=== PATIENT | female | born 1960 | race Caucasian/White ===

== ENCOUNTER 2017-02-12 07:24 | Inpatient (IN) | payer BC ==
--- NOTE | 2017-02-02 19:33 | HP ---
ADMISSION HISTORY AND PHYSICAL: DATE OF ADMISSION: 02/12/17 PATIENT OF: Dr. Francheska Vanessa. (DICTATED BY ISAI CALDERÓN) CHIEF COMPLAINT: Enlarged thyroid gland. HISTORY OF PRESENT ILLNESS: Ms. Tavarez is a pleasant 56-year-old female who presented to our [facility] office today to discuss her anticipated subtotal thyroidectomy scheduled on 02/12/17. The patient has been known to our practice from prior visit. She was seen by Dr. Vanessa earlier this month for evaluation of thyroid goiter. She reports having an enlarged thyroid for over 10 years that has been initially followed by her primary care physician, Dr. Laura Faye, who eventually referred her to an onsite case manager, Dr. Constantine Diaz. The patient notes that overall her gland has been stable, but recently was noted to have more enlargement specially on the right side. The patient also recalled going to Dr. Arvizu approximately 10 years ago who advised her to undergo thyroidectomy, but the patient elected to wait due to lack of any significant symptoms. She has been followed by Dr. Diaz for the past few years and has been clinically euthyroid. Most recently in the last couple of months, she notes increased swelling of her thyroid gland especially on the right side, but denied any other associated symptoms such as dysphagia. She denies any endocrine symptoms such as heat or cold intolerance, thinning of the hair, or any voice changes. Given her ongoing symptoms, the patient was seen at our office to discuss possible thyroidectomy. She had several ultrasounds, most recently was a month ago that confirmed several nodules, some of them are larger compared to prior studies. There was also noted that some nodules were over 4 cm in diameter. Fine-needle aspiration was recommended; however, the patient elected to go with surgery given the increased size of her thyroid gland. She came and discussed the surgery in details with Dr. Vanessa and the surgery was scheduled on 02/12/17 and the patient presents today to discuss the surgical options and to answer some of her questions regarding the risk of surgery and anticipated time of recovery. PAST MEDICAL HISTORY: Significant for multinodular goiter, type 2 diabetes mellitus, extrinsic asthma without any history of the status asthmaticus. She also has a history of seasonal allergies. PAST SURGICAL HISTORY: Includes a hysterectomy with bilateral salpingo- oophorectomy back in 2003 due to a history of endometriosis and fibroids. She also had a diagnostic laparoscopy with lysis of adhesions in 2001. CURRENT MEDICATIONS: Her current medications at home include: 1. Metformin 500 mg 1 by mouth every day. 2. Flonase Allergy Relief 50 mcg 2 puffs every day. 3. Ventolin 108 mcg 2 puffs 4 times a day as needed for shortness of breath. 4. Flovent 110 mcg 2 puffs once a day. 5. Cetirizine 10 mg 1 tablet daily. ALLERGIES: She has no known drug allergies. FAMILY HISTORY: She denies any family history of the thyroid disease or malignancy. SOCIAL HISTORY: The patient is a nonsmoker who never smoked before. She drinks alcohol very rarely and caffeine intake is minimal. She has a partner and adopted daughter. 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 REVIEW OF SYSTEMS: See HPI, otherwise negative. She denies any headache, dizziness, syncope or blurred vision. No heat or cold intolerance. No dysphagia, sore throat, or difficulty breathing. No cough, wheezing, or shortness of breath. She denies any abdominal pain, nausea, vomiting, or recent changes in the bowel habits. No dysuria, hematuria, flank pain, urinary frequency, or any history of kidney stones. No limb weakness, paresthesia, or heat or cold sensation. PHYSICAL EXAMINATION GENERAL: She is a middle-aged female, obese, appears comfortable and in no acute distress or discomfort at the time of the consultation. VITAL SIGNS: Her vitals today was blood pressure of 118/78, pulse of 88, respiration 16, temperature of 98.4. She weighs 224 pounds on a 5 feet 4 inch frame with BMI of 38.4. HEENT: Sclerae anicteric. PERRLA. EOMs intact. Oropharynx is pink, moist with no exudate. NECK: Supple. Trachea midline. No cervical adenopathy. There is a significant enlargement of the thyroid gland noted more to the right lobe than the left lobe. Both glands are movable with no tenderness noted on palpation. There is multi- nodules noted on examination, appears to be firm and again nontender. Trachea appears to be midline. There is no difficulty or shifting during attempts of swallowing. No JVD was noted. LUNGS: Clear to auscultation bilaterally. HEART: Regular rate and rhythm. Normal S1 and S2 without rubs, murmurs, or gallops. ABDOMEN: Soft, nontender, and nondistended. No hernias, masses, or hepatosplenomegaly. BREAST EXAM: Deferred at this time. BACK: With normal curvature. No CVA tenderness. EXTREMITIES: Without cyanosis, clubbing, or edema. NEUROLOGIC: Grossly intact. RECTAL EXAM: Deferred at this time. ASSESSMENT: A 56-year-old female with progressive enlargement of her thyroid gland documented on physical exam as well as most recent sonogram a month ago with multinodular goiter noted with some nodules approaching size of 4 cm or bigger. PLAN: As mentioned above, the patient is scheduled for bilateral subtotal thyroidectomy to be performed by Dr. Vanessa on 02/12/17. The rationale, indications, risks, and benefits of surgery were discussed with her in great details today. Risks include, but not limited to infection, bleeding, injury to adjacent structure specifically recurrent laryngeal nerve with inherent risk of the voice changes. The patient fully understands the risk inherited, and wishes to proceed as outlined. Again all her questions were answered in great details today. Dr. Vanessa also presented to the room to answer a few of her questions regarding the risks of surgery, the intraoperative course, and the expectation of recovery time. She will go to her preadmission testing today and we will obtain baseline blood work, chest x-ray given her known history of asthma as well as an EKG as well. She was advised to call the office if she has any further question, otherwise we will see her at surgery date and we will follow her up accordingly. ISAI CALDERÓN CC: Dr. Laura Faye; Dr. Constantine Diaz * [id number]/[facility] #: [id number] [facility]OSPITALJustin
[~2017-02-12 07:24] MED LIST: Buffered Lidocaine 1% SYR 3ML* 3 ML/SYR SYRINGE INTRADERM ONE; Famotidine IV* 10 MG/ML 2 ML (20 mg) IV ONE; Famotidine IV* 10 MG/ML 2 ML (20 mg) ONE; Levalbuterol 0.63MG/3ML NEB INH ONE; Levalbuterol 1.25MG/0.5ML NEB ONE; Metoclopramide TAB* 10 MG ONE; Metoclopramide TAB* 10 MG PO ONE; Scopolamine 1.5 mg* PATCH ONE; Scopolamine 1.5 mg* PATCH TRANSDERM ONE; ceFAZolin 2 GM PREMIX(*) 2 GM/50 ML BAG IVPB ONE
[2017-02-12] MEDS ORDERED: Bupivacaine 0.25% EPI 200,000* 30 ML SDV ONE (08:04)
[2017-02-12] MEDS ORDERED: KETAMINE HCL* 50 MG/ML 10 ML VIAL ONE (08:25)
[2017-02-12] MEDS ORDERED: Cisatracurium* 2 MG/ML MDV 5 ML ONE (08:25)
[2017-02-12] MEDS ORDERED: Propofol* 10 MG/ML 20 ML BTL IV PUSH ONE (08:25)
[2017-02-12] MEDS ORDERED: fentaNYL* 50 MCG/ML 2 ML VIAL (100 MCG VIAL) ONE ×2 (08:25→11:22)
[2017-02-12] MEDS ORDERED: Ondansetron INJ* 2 MG/ML VIAL ONE (08:25)
[2017-02-12] MEDS ORDERED: Dexamethasone IV* 4 MG/ML 1 ML (4 MG) ONE (08:25)
[2017-02-12] MEDS ORDERED: Lidocaine 2% PF * 5 ML VIAL ONE (08:25)
[2017-02-12] MEDS ORDERED: Artificial Tear OPHTH.OINT* 3.5 GM ONE (08:26)
[2017-02-12] MEDS ORDERED: Midazolam* 1 MG/ML 5 ML VIAL (5 MG) ONE (08:26)
[2017-02-12] MEDS ORDERED: oxyCODONE/Acetamin 5/325 MG* TAB PO PRN (09:51)
[2017-02-12] MEDS ORDERED: fentaNYL* 50 MCG/ML 2 ML VIAL (100 MCG VIAL) IV PRN (09:51)
[2017-02-12] MEDS ORDERED: Ondansetron INJ* 2 MG/ML VIAL IV PRN ×2 (09:51→12:11)
[2017-02-12] MEDS ORDERED: HYDROmorphone* 1 MG/ML 1 ML SYR IV PRN (09:51)
[2017-02-12] MEDS ORDERED: DiMENhydriNATE IV* 50 MG/ML VIAL IV PUSH PRN (09:51)
--- NOTE | 2017-02-12 12:02 | PN ---
Progress Note - Progress Note Note: Brief Operative Note: Preop Dx: Multinodular goiter Postop Dx: same Procedure: Subtotal thyroidectomy Anesthesia: GET Surgeon: Otf Asst: ISAI Mallory EBL: <100 ml Fluids:1350 ml RL Drains: none Findings: dictated
[2017-02-12] MEDS ORDERED: Acetaminophen TAB* 325 MG PO PRN (12:08)
[2017-02-12] MEDS ORDERED: Albuterol HFA INHALER* 8 gm MDI INH PRN (12:08)
[2017-02-12 12:45] LABS: Calcium 9.2 mg/dL (8.6-10.3)
[2017-02-12] MEDS ORDERED: Calcium Carbonate CHEW TAB* 500 MG (TUMS) ONE (14:14)
[2017-02-12] MEDS: Calcium Carbonate CHEW TAB* 500 MG (TUMS) PO SCH ×2 (14:16→21:05)
[2017-02-12] MEDS: HYDROcodone/ACET. 7.5/325 LIQ* 15 ML UDC PO PRN ×2 (14:24→21:05)
[2017-02-12] MEDS ORDERED: GLUCOPHAGE PO SCH (18:00)
[2017-02-12] MEDS ORDERED: METFORMIN 500 MG PO SCH ×2 (18:33→20:00)
[2017-02-12] MEDS ORDERED: PTO: Metformin ER (NF) 500 MG TAB PO SCH (20:00)
[2017-02-12] MEDS ORDERED: Cetirizine* 10 MG TAB PO SCH (21:00)
--- NOTE | 2017-02-12 23:28 | OP ---
CC: [facility]; Dr. Constantine Diaz; Dr. Laura Faye OPERATIVE SUMMARY: DATE OF OPERATION: 02/12/17 DATE OF : 60 SURGEON: Francheska Vanessa MD CURRICULUM WRITER: ISAI Chavez PRE-OP DIAGNOSIS: Diffuse nodular goiter. POST-OP DIAGNOSIS: Diffuse nodular goiter. OPERATIVE PROCEDURE: Subtotal bilateral thyroidectomy. INDICATIONS: Ms. Tavarez is a 56-year-old female, who presented to the office with history of nod ular goiter that has recently enlarged and is causing symptoms prompting the plan for surgical inter vention. DESCRIPTION OF PROCEDURE: On the morning of the surgery, she was brought to the operating room, liam prashanth on the OR table in a supine position, and given general anesthesia. The neck was prepped and dr vijayed in the usual sterile fashion. After infiltrating with local anesthetic, an incision was made a long the line that had been marked preoperatively. Subcutaneous tissue was divided with electrocaut elizabeth through the platysma muscle and then flaps were developed superiorly to the thyroid nodule and i nferiorly to the sternal notch. The strap muscles were then divided along the midline, which was no akua to be displaced due to very large right thyroid lobe. The strap muscles were then retracted ove r the right side of the gland and attention was turned first to the superior pole here in its medial aspect, vessels were identified approaching the gland and divided between ligature and clip. This was made difficult by the size of the gland and once a substantial proportion of the vessels were ta festus down from the superior pole, attention was turned to the inferior pole, where LigaSure was used to control vessels that approached the gland. Again, this was made difficult by the size of the gla nd. Attention was turned again onto more to the superior pole and further dissection was facilitate d by the slightly increased mobility of the inferior pole and again, attention was turned to the inf erior pole, where ultimately the mobility was increased enough to allow the complete dissection of t he inferior pole. The gland was then delivered with difficulty again due to the size of the gland a nd attention was turned to the middle portion of the gland. Here searching for the recurrent laryng eal nerve was made and it was positively identified along with a candidate for inferior pole parathy roid that was preserved during the procedure and then dissection was completed of the remaining vess els using a combination of LigaSure and clip and then placing the gland remote from the nerve was se lected for division of the gland with electrocautery. The remnant was left in situ and the remainin g portion of the gland was elevated out of the neck and off the trachea using electrocautery. Once this was done, attention was turned to the left side. Here again, the first dissection was begun in the superior pole, where individual vessels that approached the gland were divided between ligature and clip and then attention was turned to the inferior pole, where the vessels were divided with Li gaSure. This again took some repeat dissection in the superior pole to completely free it up. Once this was done, the gland was able to be delivered into the wound and dissection in the middle porti on of the gland was accomplished. Here, two candidates for inferior and superior pole parathyroids were identified and preserved. The recurrent laryngeal nerve was identified and then a place in the gland was identified for division and electrocautery was used to divide the gland leaving the small remnant in situ. The gland was elevated off the neck using electrocautery. Its last detachments w ere clamped and ligated and the gland was handed off as a specimen. Hemostasis was assured with a co mbination of clip, control of vessels, and Surgicel on both sides and once this appeared adequate, c losure was accomplished. 3-0 Polysorb was used to reapproximate the strap muscles, 4-0 Polysorb was used to reapproximate the platysma muscle, and the skin was closed with 4-0 Surgipro in a subcuticu lar fashion. Prior to completing the closure, additional local was instilled into the wound. Steri -Strips and a dry sterile dressing were applied. All sponge and instrument counts were correct. The patient tolerated the procedure well and was transferred to Recovery in a stable condition. [id number]/[facility] #: [id number]
[2017-02-13] MEDS: HYDROcodone/ACET. 7.5/325 LIQ* 15 ML UDC PO PRN ×2 (04:35→13:26)
[2017-02-13] MEDS ORDERED: Levothyroxine TAB* 75 MCG TAB PO SCH (06:00)
--- NOTE | 2017-02-13 07:32 | PN ---
Progress Note - Progress Note Note: Surgery Ms. Tavarez reports she feels fine, she does have some pain at the incision. Vital Signs 02/12/17 02/12/17 02/12/17 07:40 12:03 12:05 Temperature 96.8 F 97.9 F Pulse Rate 72 92 92 Respiratory 16 18 18 Rate Blood Pressure 127/69 128/78 127/72 (mmHg) O2 Sat by Pulse 95 91 98 Oximetry 02/12/17 02/12/17 02/12/17 12:10 12:15 12:30 Temperature Pulse Rate 90 90 91 Respiratory 18 18 18 Rate Blood Pressure 136/95 143/87 123/89 (mmHg) O2 Sat by Pulse 97 99 99 Oximetry 02/12/17 02/12/17 02/12/17 12:44 13:00 13:15 Temperature 98.6 F Pulse Rate 89 99 91 Respiratory 18 20 20 Rate Blood Pressure 136/82 145/83 140/74 (mmHg) O2 Sat by Pulse 97 98 97 Oximetry 02/12/17 02/12/17 02/12/17 13:45 13:55 14:24 Temperature 97.6 F Pulse Rate 94 Respiratory 14 16 14 Rate Blood Pressure 149/78 (mmHg) O2 Sat by Pulse 93 Oximetry 02/12/17 02/12/17 02/12/17 15:05 15:08 15:47 Temperature 98.1 F 97.9 F Pulse Rate 97 95 Respiratory 16 16 Rate Blood Pressure 141/75 159/83 (mmHg) O2 Sat by Pulse 97 96 Oximetry 02/12/17 02/12/17 02/12/17 16:00 16:24 17:55 Temperature Pulse Rate 102 Respiratory 16 16 Rate Blood Pressure 132/77 (mmHg) O2 Sat by Pulse 96 96 Oximetry 02/12/17 02/12/17 02/12/17 19:48 20:00 21:05 Temperature 98.3 F Pulse Rate 108 Respiratory 16 17 17 Rate Blood Pressure 139/64 (mmHg) O2 Sat by Pulse 95 Oximetry 02/12/17 02/12/17 02/13/17 23:05 23:12 03:39 Temperature 98.7 F 98.4 F Pulse Rate 97 86 Respiratory 16 16 16 Rate Blood Pressure 124/76 121/67 (mmHg) O2 Sat by Pulse 97 98 Oximetry 02/13/17 04:35 Temperature Pulse Rate Respiratory 17 Rate Blood Pressure (mmHg) O2 Sat by Pulse Oximetry incision is clean and dry, no signs infection neg. [place] sign. Intake & Output 02/12/17 02/13/17 02/13/17 22:59 06:59 14:59 Intake Total 3590 1744 Output Total 2200 1850 Balance 1390 -106 Intake: IV Fluids 990 944 LR 990 944 Oral 2600 800 Output: Urine 2200 1850 Laboratory Results - last 24 hr 02/12/17 02/12/17 02/12/17 07:43 12:24 17:50 Glucose 157 H POC Glucose (mg/dL) 114 H Calcium 9.2 8.8 02/12/17 02/12/17 02/13/17 18:01 21:13 00:34 Glucose POC Glucose (mg/dL) 153 H 115 H Calcium 9.5 02/13/17 05:28 Glucose POC Glucose (mg/dL) Calcium 8.8 A/P: POD#1 s/p subtotal thyroidectomy, doing well. Can go home if next Ca++ is WNL. CLFoster
[2017-02-13] MEDS: Calcium Carbonate CHEW TAB* 500 MG (TUMS) PO SCH ×2 (08:55→13:27)
[2017-02-13] MEDS ORDERED: Fluticasone NASAL SPRAY 50MCG* 16 gm SPRAY BTL BOTH NARES SCH (09:00)
[2017-02-13 11:48] VITALS: BP 116/64
[2017-02-15] MEDS ORDERED: Scopolomine PATCH Remove* 1 NOTE MISC PATCH OFF ONE (07:00)
== END 2017-02-13 13:50 | disposition home or self-care (01) | DRG 404 ==
LOC: AA 07:24 → SSU 12:03
PROVIDERS: ADMIT Surgery; ATTEND Surgery
PROC: 0GBH0ZZ Excision of Right Thyroid Gland Lobe, Open Approach (ICD-10-PCS; 2017-02-12)
PROC: 0GBG0ZZ Excision of Left Thyroid Gland Lobe, Open Approach (ICD-10-PCS; principal; 2017-02-12 08:45)
DX: E04.2 Nontoxic multinodular goiter (principal); F32.9 Major depressive disorder, single episode, unspecified; E11.9 Type 2 diabetes mellitus without complications; J45.909 Unspecified asthma, uncomplicated; E78.5 Hyperlipidemia, unspecified; E66.9 Obesity, unspecified; Z90.710 Acquired absence of both cervix and uterus; Z90.722 Acquired absence of ovaries, bilateral; Z68.37 Body mass index [BMI] 37.0-37.9, adult; Z79.84 Long term (current) use of oral hypoglycemic drugs
CPT/HCPCS: 36415; 82310; 82947; 88307; A9270-GY; G0378; J0690; J1100; J2250; J2405; J2704; J3010

== ENCOUNTER 2017-10-25 10:02 | Emergency (ER) | payer BC ==
[2017-10-25 11:10] LABS: ABS Basophils 0 10^3/ul (0-0.2); ABS Eosinophils 0.2 10^3/ul (0-0.6); ABS Lymphocytes 1.9 10^3/ul (1.0-4.8); ABS Monocytes 0.5 10^3/ul (0-0.8); ABS Neutrophils 4.7 10^3/ul (1.5-7.7); ABS Nucleated RBC 0 10^3/ul; Eosinophil % 3.3 % (0-6); Hematocrit 41 % (35-47); Hemoglobin 13.6 g/dl (12.0-16.0); Lymphocyte % 25.4 % (25-47); Mean Corpuscular HGB Conc 33 g/dl (31-36); Mean Corpuscular Hemoglobin 29 pg (27-31); Mean Corpuscular Volume 88 fL (80-97); Mean Platelet Volume 8 um3 (7.4-10.4); Nucleated Red Blood Cells % 0.1; Platelet Count 251 10^3/ul (150-450); Red Blood Count 4.65 10^6/ul (4.0-5.4); Red Cell Distribution Width 14 % (10.5-15); White Blood Count 7.3 10^3/ul (3.5-10.8)
[2017-10-25 11:29] LABS: INR 0.81 (0.77-1.02)
[2017-10-25 11:30] LABS: EGFR Non-African American 111.6 (>60)
--- NOTE | 2017-10-25 11:45 | RAD ---
INDICATION: Chest pain. COMPARISON: Comparison is made with a prior study from February 02, 2017. TECHNIQUE: Dual-energy PA and lateral views of the chest were obtained. FINDINGS: The heart is within normal limits in size. Mediastinal and hilar contours appear within normal limits. The lungs are clear. No pleural effusion is present. IMPRESSION: NO EVIDENCE FOR ACTIVE CARDIOPULMONARY DISEASE.
--- OUTSIDE RECORDS SUMMARY | 2017-10-25 11:53 | XMS REPORT ---
:1960 External Reference #:[id number] Author Organization [facility] Address [address] [address] Phone [phone] Care Team Providers Name Role Phone Laura Faye MD Primary Care Physician Unavailable Payers Type Date Identification Numbers Payment Provider Subscriber Commercial Effective: Policy Number: KENNY Billings Ana Ellington [place] 2011 [id number] Expires: 2017 PayID: [id number] [place] [address] Medigap Part B Effective: Policy Number: KENNY Awa Ellington 2017 [id number] [place] PayID: [id number] [address] [place] [address] Medigap Part B Effective: Policy Number: BS Ran DUSTIN Ellington 2010 [id number] [place] Expires: 2011 Group Number: [id number] [address] [address] PayID: [id number] [place] [address] Workers Compensation Onset: 2015 Policy Number: Duke Ellington [id number] [place] Group Number: [id number] [address] PayID: [id number] [place] [address] Problems Date Description Provider Status Onset: 12/23/2010 Extrinsic asthma without status Laura Faye M.D. Active asthmaticus Onset: 01/30/2015 Diabetes mellitus Laura Faye M.D. Active Onset: 03/10/2017 Postoperative hypothyroidism Laura Faye M.D. Active Onset: 01/15/2016 Multinodular goiter Laura Faye M.D. 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 Cigarette Use Never Smoked Cigarettes ETOH Use Rarely consumes alcohol once every 3 months or so Smoking Patient has never smoked Recreational Drug Use Denies Drug Use General Hx Text Health Care Proxy: Lorena Flores Sexual Hx text SSP Allergies, Adverse Reactions, Alerts Date Description Reaction Status Severity Comments 07/03/2010 No Known Drug Allergy active Medications Medication Date Status Form Strength Qnty SIG Indications Ordering Provider Levothyroxine 10/19 Active Tablets 112mcg 90tab 1 by mouth s every day Linda Faye.DBinta Nystop 08/19 Active Powder [id number] 120un apply twice t/GM its daily to Cotton, affected M.D. areas Metformin HCL 01/27 Active Tablets ER 500mg 90tab 1 by mouth E11.9 Laura ER /2015 24HR s every day Yunier M.D. Flonase Allergy 05/30 Active Suspension 50mcg/Act 16uni use 2 puffs ts every day Cotton, M.D. Ventolin HFA 05/18 Active Aerosol 108(90Bas 18uni use 2 puffs e) ts 4 times a Cotton, mcg/Act day as M.D. needed Flovent HFA 12/23 Active Aerosol 110mcg/Ac 36gm inhale 2 J45.40 t puffs once Cotton, a day M.D. Cetirizine HCL 07/04 Active Tablets 10mg 1 tablet by mouth daily Yunier, YeimyDBinta Vivotif 04/[address] luna take one Z71.9 pill every Cotton, - other day M.D. 10/18 until Atovaquone-Prog 04/13 Hx Tablets 250-100mg 25tab Start 2 Z71.9 Laura uanil HCL s days prior Cotton, - to travel, M.D. 06/04 once daily through 1 week after return Azithromycin 04/13 Hx Tablets 500mg 10tab 1 by mouth Z71.9 s once day x Cotton, - 3 days prn M.D. 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 02/23 for 10 Nystop 01/27 Hx Powder [id number] 120gm apply twice R21 t/GM daily to Yunier, - affected M.D. 06/22 Metformin HCL 10/09 Hx Tablets 500mg 30tab Take 10/05 E11.9 s tablet once Cotton, - daily in M.D. 01/27 the evening for 2 weeks. If tolerated, increase to whole tablet once daily Augmentin 10/25 Hx Tablets 875-125mg 20tab 1 tablet by 461.8 Thanh s mouth q12 Sloane, BASEBALL SEWER HAND - hours for 11/03 10 Benzonatate 10/25 Hx Capsules 100mg 30cap take one or 461.8 Thanh s two Sloane, BASEBALL SEWER HAND - capsules 11/02 every hours as needed for cough. Azithromycin 07/11 Hx Tablets 250mg 6tabs 2 tabs by 466.0 Thanh mouth every Sloane, BASEBALL SEWER HAND - day x1 day, 10/01 1 tab by mouth every day x 4 days Flonase 05/24 Hx Suspension 50mcg/Act 16uni Use 2 Puffs ts Every Day Yunier, - M.D. 05/30 Zithromax Z-Nilton 11/19 Hx Tablets 250mg 6tabs two po initially Endo, M.DBinta - then one po 12/01 Atrovent 09/09 Hx Solution 0.06% 1ml 2 sprays in 465.9 Alexa each Juwan, - nostril 4 N.P. 05/18 times Robitussin 09/09 Hx Syrup 100mg/5ML 118ml 10 ml po 465.9 Alexa Chest q4h prn Juwan, Congestion - N.P. 09/09 Zyrtec-D 09/09 Hx Tablets ER 5-120mg 60tab 1 tab bid 465.9 Alexa Allergy/Congest 12HR s daily Juwan, ion - N.P. 05/18 Cheratussin ac 09/09 Hx Syrup 100-10mg/ 236ml 5-10 ml po Alexa 5ML q4-6h prn Juwan, - N.P. 03/22 Fluticasone 01/14 Hx Suspension 50mcg/Act 16gm 2 Laura intranasal Cotton, - puffs once M.D. 05/24 Flovent HFA 11/13 Hx Aerosol 220mcg/Ac 3unit 2 puffs 493.00 t s twice daily Cotton, - M.D. 12/23 Ventolin HFA 11/13 Hx Aerosol 108(90Bas 18uni Use 2 Puffs 493.00 e) mcg/ac ts 4 Times A Cotton, - Day as M.D. 05/18 Augmentin 11/05 Hx Tablets 875-125mg 20tab one by s mouth every Cotton, - 12 hours M.D. 11/15 for days Medrol Dosepak 11/05 Hx Tablets 4mg 1tabs as directed Cotton, - M.D. 11/11 Medrol Dosepak 10/27 Hx Tablets 4mg 1tabs as directed Cotton, - M.D. 11/02 Zithromax Z-Nilton 10/22 Hx Tablets 250mg 1Pack two po initially Cotton, - then one po M.D. 11/01 Rhinocort Aqua Hx Suspension 32mcg/Act 1unit 1 spray in Laura /0000 s each Cotton, - nostril M.D. 01/14 once daily /2011 Albuterol 00/00 Hx 1unit 2 puffs 4 493.00 Laura Inhaler /0000 s times a day Cotton, - as needed M.D. 11/13 Flovent HFA 00/ Hx Aero 110mcg/Ac 12uni Take 3 493.00 Laura /0000 t ts Puffs Twice Cotton, - A Day M.D. 11/13 Mucinex 00 Hx Liquid 10-20-400 1 qd Unknown Fast-Max Severe /0000 mg/20ML Congestion - & Cough 03/22 Decongestant Hx Tablets 30mg 2 every 6 Unknown /0000 hours - 09/09 Synthroid Hx Tablets 75mcg 1 by mouth Unknown /0000 every day - 03/10 Calcium Hx Tablets 600mg 1 by mouth Unknown Carbonate /0000 three times - a day 04/13 Levothyroxine Hx Tablets 150mcg 1 by mouth Constantine Diaz Sodium /0000 every day MD - 10/18 Clotrimazole Hx Cream 1% apply twice Unknown /0000 daily - 10/18 Immunizations CPT Code Status Date Vaccine Reaction Lot # [id number] Given 07/05/2017 Influenza Virus Vaccine, Quadrivalent, Split, Preservative Free 31353 Given 10/13/2016 Tetanus And Diptheria (Td) no immediate reaction [id number] For Adult Use Preservative noted .. hh Free [id number] Given 10/13/2016 Influenza Virus Vaccine, no immediate reaction [id number] Quadrivalent, Split Virus, noted,,, hh Im Use [id number] Given 07/05/2015 Fluvirin Im 3Yrs And Older [id number] Given 07/16/2014 Influenza Virus Vaccine, Quadrivalent, Split, Preservative Free 14619 Given 07/16/2014 Influenza Virus Vaccine, [id number] Quadrivalent, Split, Preservative Free Q2037 Given 06/30/2013 Fluvirin Im 3Yrs And Older Q2037 Given 09/19/2012 Fluvirin Im 3Yrs And Older [id number] 63466 Given 07/04/2010 Influenza Virus 3Yrs & Over 48619 Given 06/13/2009 Pneumonia Vaccine 72036 Given 06/13/2009 Influenza Virus 3Yrs & Over 18728 Given 07/19/2008 Influenza Virus 3Yrs & Over 58553 Given 03/15/2007 Tdap - Tetanus/Diptheria/Acellular Pertussis Vital Signs Date Vital Result Comment 10/19/2017 Height 64.50 inches 5'4.50" Weight 229.00 lb Heart Rate 87 /min BP Systolic 120 mmHg BP Diastolic 72 mmHg Body Temperature 98.8 F O2 % BldC Oximetry 96 % BMI (Body Mass Index) 38.7 kg/m2 04/13/2017 Weight 221.00 lb Heart Rate 74 /min BP Systolic Sitting 114 mmHg BP Diastolic Sitting 74 mmHg O2 % BldC Oximetry 97 % 03/29/2017 Weight 226.00 lb with shoes Heart Rate 70 /min BP Systolic 126 mmHg BP Diastolic 80 mmHg O2 % BldC Oximetry 97 % 02/22/2017 Heart Rate 72 /min BP Systolic 120 mmHg BP Diastolic 82 mmHg Respiratory Rate 18 /min Body Temperature 96.9 F 02/09/2017 Weight 225.75 lb Heart Rate 76 /min BP Systolic 122 mmHg BP Diastolic 78 mmHg Body Temperature 98.3 F O2 % BldC Oximetry 98 % 02/02/2017 Height 64 inches 5'4" Weight 224.00 lb Heart Rate 88 /min BP Systolic Sitting 118 mmHg BP Diastolic Sitting 78 mmHg Respiratory Rate 16 /min Body Temperature 98.4 F BMI (Body Mass Index) 38.4 kg/m2 01/12/2017 Height 64 inches 5'4" Weight 224.00 lb Heart Rate 72 /min BP Systolic 122 mmHg BP Diastolic 78 mmHg Respiratory Rate 16 /min Body Temperature 97.6 F BMI (Body Mass Index) 38.4 kg/m2 10/13/2016 Height 64 inches 5'4" Weight 220.00 lb Heart Rate 76 /min BP Systolic Sitting 124 mmHg BP Diastolic Sitting 80 mmHg Respiratory Rate 15 /min Body Temperature 98.1 F O2 % BldC Oximetry 98 % BMI (Body Mass Index) 37.8 kg/m2 06/22/2016 Height 65 inches 5'5" Weight 234.00 lb Heart Rate 89 /min BP Systolic 124 mmHg BP Diastolic 78 mmHg Body Temperature 98.4 F O2 % BldC Oximetry 97 % BMI (Body Mass Index) 38.9 kg/m2 05/05/2016 Weight 232.00 lb Heart Rate 71 /min BP Systolic Sitting 113 mmHg BP Diastolic Sitting 74 mmHg O2 % BldC Oximetry 98 % 02/13/2016 Weight 237.00 lb Heart Rate 90 /min BP Systolic Sitting 126 mmHg BP Diastolic Sitting 82 mmHg Respiratory Rate 14 /min Body Temperature 98.2 F O2 % BldC Oximetry 97 % 01/28/2016 Weight 237.00 lb Heart Rate 85 /min BP Systolic 116 mmHg BP Diastolic 70 mmHg Body Temperature 98.6 F O2 % BldC Oximetry 96 % 10/09/2015 Height 65 inches 5'5" Weight 241.00 lb Heart Rate 84 /min BP Systolic Sitting 124 mmHg BP Diastolic Sitting 76 mmHg Body Temperature 98.3 F O2 % BldC Oximetry 97 % BMI (Body Mass Index) 40.1 kg/m2 09/17/2015 Height 65 inches 5'5" Weight 241.00 lb Heart Rate 86 /min BP Systolic Sitting 122 mmHg BP Diastolic Sitting 78 mmHg Respiratory Rate 15 /min Body Temperature 97.6 F O2 % BldC Oximetry 98 % BMI (Body Mass Index) 40.1 kg/m2 05/30/2015 Weight 236.00 lb Heart Rate 94 /min BP Systolic Sitting 133 mmHg BP Diastolic Sitting 81 mmHg Body Temperature 98.4 F 03/01/2015 Height 65 inches 5'5" Weight 233.00 lb Heart Rate 80 /min BP Systolic 112 mmHg BP Diastolic 72 mmHg Body Temperature 98.4 F BMI (Body Mass Index) 38.8 kg/m2 11/27/2014 Weight 235.00 lb Heart Rate 70 /min BP Systolic Sitting 124 mmHg BP Diastolic Sitting 84 mmHg Body Temperature 98.1 F O2 % BldC Oximetry 97 % 10/25/2014 Height 65 inches 5'5" Weight 231.00 lb Heart Rate 99 /min BP Systolic 106 mmHg BP Diastolic 72 mmHg Body Temperature 98.4 F O2 % BldC Oximetry 99 % BMI (Body Mass Index) 38.4 kg/m2 10/02/2014 Height 65 inches 5'5" Weight 230.50 lb Heart Rate 79 /min BP Systolic Sitting 102 mmHg BP Diastolic Sitting 58 mmHg Body Temperature 97.9 F O2 % BldC Oximetry 97 % BMI (Body Mass Index) 38.4 kg/m2 07/11/2014 Height 65 inches 5'5" Weight 223.00 lb shoes on Heart Rate 85 /min BP Systolic Sitting 118 mmHg BP Diastolic Sitting 68 mmHg Body Temperature 98.8 F O2 % BldC Oximetry 98 % BMI (Body Mass Index) 37.1 kg/m2 05/21/2014 Height 65 inches 5'5" Weight 220.00 lb Heart Rate 68 /min BP Systolic Sitting 102 mmHg BP Diastolic Sitting 76 mmHg BMI (Body Mass Index) 36.6 kg/m2 12/04/2013 Height 65 inches 5'5" Weight 231.00 lb Heart Rate 80 /min BP Systolic Sitting 152 mmHg BP Diastolic Sitting 90 mmHg Body Temperature 99.5 F BMI (Body Mass Index) 38.4 kg/m2 12/01/2013 Weight 231.00 lb Heart Rate 76 /min BP Systolic 126 mmHg BP Diastolic 78 mmHg Respiratory Rate 16 /min Body Temperature 98.7 F 05/18/2013 Height 65 inches 5'5" Weight 223.50 lb Heart Rate 88 /min BP Systolic Sitting 106 mmHg BP Diastolic Sitting 70 mmHg BMI (Body Mass Index) 37.2 kg/m2 03/22/2013 Weight 227.00 lb Heart Rate 80 /min BP Systolic Sitting 110 mmHg BP Diastolic Sitting 80 mmHg Body Temperature 98.4 F 09/09/2012 Height 65.5 inches 5'5.50" Weight 228.00 lb Heart Rate 112 /min BP Systolic Sitting 126 mmHg BP Diastolic Sitting 80 mmHg Body Temperature 98.5 F BMI (Body Mass Index) 37.4 kg/m2 02/12/2012 Height 65 inches 5'5" Weight 214.00 lb Heart Rate 72 /min BP Systolic Sitting 122 mmHg L BP Diastolic Sitting 70 mmHg L BMI (Body Mass Index) 35.6 kg/m2 08/21/2011 Height 64.5 inches 5'4.50" Weight 201.00 lb Heart Rate 74 /min BP Systolic Sitting 128 mmHg BP Diastolic Sitting 76 mmHg BMI (Body Mass Index) 34.0 kg/m2 04/15/2011 Height 64.5 inches 5'4.50" Weight 217.00 lb Heart Rate 66 /min BP Systolic Sitting 118 mmHg BP Diastolic Sitting 82 mmHg BMI (Body Mass Index) 36.7 kg/m2 01/27/2011 Height 64.5 inches 5'4.50" Weight 224.50 lb Heart Rate 88 /min BP Systolic 118 mmHg BP Diastolic 72 mmHg BMI (Body Mass Index) 37.9 kg/m2 12/23/2010 Weight 223.00 lb Heart Rate 78 /min BP Systolic 122 mmHg BP Diastolic 78 mmHg O2 % BldC Oximetry 96 % 11/13/2010 Weight 224.00 lb Heart Rate 98 /min BP Systolic 110 mmHg LG Cuff BP Diastolic 70 mmHg LG Cuff Body Temperature 98.3 F O2 % BldC Oximetry 97 % 11/05/2010 Weight 224.00 lb Heart Rate 64 /min BP Systolic 124 mmHg BP Diastolic 70 mmHg Body Temperature 98.5 F 10/22/2010 Weight 225.00 lb Heart Rate 80 /min BP Systolic 122 mmHg BP Diastolic 80 mmHg Body Temperature 98.4 F 07/04/2010 Weight 212.50 lb Heart Rate 76 /min BP Systolic 118 mmHg BP Diastolic 84 mmHg O2 % BldC Oximetry 97 % Results Test Date Test Result H/L Range Note Comp Metabolic Panel 10/08/2017 Sodium 137 mmol/L 133-145 Potassium 4.3 mmol/L 3.5-5.0 Chloride 103 mmol/L 101-111 Co2 Carbon Dioxide 26 mmol/L 22-32 Anion Gap 8 mmol/L 2-11 Glucose 121 mg/dL High 70-100 Blood Urea Nitrogen 15 mg/dL 6-24 Creatinine 0.63 mg/dL 0.51-0.95 BUN/Creatinine Ratio 23.8 High 8-20 Calcium 9.6 mg/dL 8.6-10.3 Total Protein 6.8 g/dL 6.4-8.9 Albumin 4.5 g/dL 3.2-5.2 Globulin 2.3 g/dL 2-4 Albumin/Globulin Ratio 2.0 1-3 Total Bilirubin 0.60 mg/dL 0.2-1.0 Alkaline Phosphatase 83 U/L 34-104 Alt 25 U/L 7-52 Ast 19 U/L 13-39 Egfr Non- 97.4 >60 Egfr 125.3 >60 1 Laboratory test finding 10/08/2017 Hemoglobin A1c (Glyco 6.2 % High 4.0- 5.6 2 HGB) Urine Microalbumin 10/08/2017 Ur Microalbumin (mg/L) < 15.0 Random mg/L Urine Creatinine 133.63 mg/dL Urine Microalbumin/Creatinine TNP ug/mg <31 3 Lipid Profile (Trig/Chol/HDL) 04/02/2017 Triglycerides 178 mg/dL 4 Cholesterol 187 mg/dL 5 HDL Cholesterol 43.1 mg/dL 6 LDL Cholesterol 108 mg/dL 7 Laboratory test 04/02/2017 Hemoglobin A1c 6.0 % High Less than 6.0 8 finding (Glyco HGB) CBC No Diff 02/02/2017 White Blood Count 8.9 10^3/uL 3.5-10.8 9 Red Blood Count 4.82 10^6/uL 4.0-5.4 9 Hemoglobin 13.8 g/dL 12.0-16.0 9 Hematocrit 42 % 35-47 9 Mean Corpuscular Volume 87 fL 80-97 9 Mean Corpuscular Hemoglobin 29 pg 27-31 9 Mean Corpuscular HGB Conc 33 g/dL 31-36 9 Red Cell Distribution Width 14 % 10.5-15 9 Platelet Count 252 10^3/uL 150-450 9 Mean Platelet Volume 8 um3 7.4-10.4 9 Basic Metabolic Panel 02/02/2017 Sodium 136 mmol/L 133-145 9 Potassium 3.9 mmol/L 3.5-5.0 9 Chloride 101 mmol/L 101-111 9 Co2 Carbon Dioxide 26 mmol/L 22-32 9 Anion Gap 9 mmol/L 2-11 9 Glucose 87 mg/dL 70-100 9 Blood Urea Nitrogen 15 mg/dL 6-24 9 Creatinine 0.58 mg/dL 0.51-0.95 9 BUN/Creatinine Ratio 25.9 High 8-20 9 Calcium 9.8 mg/dL 8.6-10.3 9 Egfr Non- 107.5 >60 9 Egfr 138.3 >60 9, 10 Lipid Profile (Trig/Chol/HDL) 10/02/2016 Triglycerides 257 mg/dL 11, 12 Cholesterol 205 mg/dL 11, 13 HDL Cholesterol 41.6 mg/dL 11, 14 LDL Cholesterol 112 mg/dL 11, 15 Comp Metabolic Panel 10/02/2016 Sodium 136 mmol/L 133-145 11 Potassium 4.2 mmol/L 3.5-5.0 11 Chloride 102 mmol/L 101-111 11 Co2 Carbon Dioxide 28 mmol/L 22-32 11 Anion Gap 6 mmol/L 2-11 11 Glucose 110 mg/dL High 70-100 11 Blood Urea Nitrogen 14 mg/dL 6-24 11 Creatinine 0.62 mg/dL 0.51-0.95 11 BUN/Creatinine Ratio 22.6 High 8-20 11 Calcium 9.4 mg/dL 8.6-10.3 11 Total Protein 6.7 g/dL 6.4-8.9 11 Albumin 4.4 g/dL 3.2-5.2 11 Globulin 2.3 g/dL 2-4 11 Albumin/Globulin Ratio 1.9 1-3 11 Total Bilirubin 0.80 mg/dL 0.2-1.0 11 Alkaline Phosphatase 84 U/L 34-104 11 Alt 20 U/L 7-52 11 Ast 14 U/L 13-39 11 Egfr Non- 99.6 >60 11 Egfr 128.1 >60 11, 16 Laboratory test 10/02/2016 Hemoglobin A1c 5.9 % Less than 6.0 11, 17 finding (Glyco HGB) Urine Microalbumin 10/02/2016 Urine Creatinine 75.10 mg/dL 11 Random Ur Microalbumin (mg/L) < 15.0 mg/L 11 Urine Microalbumin/Creatinine TNP ug/mg <31 11, 18 Laboratory test 10/02/2016 TSH (Thyroid Stim 1.07 mcIU/mL 0.34-5.60 11, 19 finding Horm) Laboratory test 01/28/2016 Hemoglobin A1c 6.2 5-7 finding Laboratory test 09/14/2015 Hemoglobin A1c 6.8 % High Less than 6.0 20 finding (Glyco HGB) TSH (Thyroid Stim Horm) 0.99 ?IU/mL 0.34-5.60 21 Comp Metabolic Panel 09/14/2015 Sodium 137 mmol/L 133-145 Potassium 4.1 mmol/L 3.5-5.0 Chloride 101 mmol/L 101-111 Co2 Carbon Dioxide 27 mmol/L 22-32 Anion Gap 9 mmol/L 2-11 Glucose 136 mg/dL High 70-100 Blood Urea Nitrogen 16 mg/dL 6-24 Creatinine 0.66 mg/dL 0.51-0.95 BUN/Creatinine Ratio 24.2 High 8-20 Calcium 9.6 mg/dL 8.6-10.3 Total Protein 7.0 g/dL 6.4-8.9 Albumin 4.6 g/dL 3.2-5.2 Globulin 2.4 g/dL 2-4 Albumin/Globulin Ratio 1.9 1-3 Total Bilirubin 1.00 mg/dL 0.2-1.0 Alkaline Phosphatase 86 U/L 34-104 Alt 37 U/L 7-52 Ast 24 U/L 13-39 Egfr Non- 93.0 >60 Egfr 119.6 >60 22 Lipid Profile (Trig/Chol/HDL) 09/14/2015 Triglycerides 199 mg/dL 23 Cholesterol 203 mg/dL 24 HDL Cholesterol 42.3 mg/dL 25 LDL Cholesterol 121 mg/dL 26 Laboratory test finding 05/30/2015 Hemoglobin A1c 6.1 5-7 Urine Microalbumin Random 05/30/2015 Ur Microalbumin (mg/L) 25.0 mg/L Urine Creatinine 140.28 mg/dL Urine Microalbumin/Creatinine 17.8 ug/mg <31 Laboratory test 12/24/2014 TSH (Thyroid 0.83 IU/mL 0.34-5.60 finding Stimulating Horm) Laboratory test 11/21/2014 Hemoglobin A1c 6.6 % High Less than 6.0 27, 28 finding Lipid Profile 11/21/2014 Triglycerides 244 mg/dL 27, 29 (Trig/Chol/HDL) Cholesterol 196 mg/dL 27, 30 HDL Cholesterol 43.8 mg/dL 27, 31 LDL Cholesterol 103 mg/dL 27, 32 Laboratory test finding 11/21/2014 Glucose 128 mg/dL High 70-100 27, 33 Laboratory test finding 10/02/2014 Rapid Strep A negative Laboratory test finding 05/08/2014 Glucose 123 mg/dL High 70-100 Hemoglobin A1c 5.8 % Less than 6.0 34 Laboratory test finding 12/04/2013 Rapid Strep A negative Cytology Non-Hand Flesher 11/09/2013 Keely RUN DATE: <SEE NOTE> Lipid Profile 10/28/2013 Triglycerides 218 mg/dL High 40-200 (Trig/Chol/HDL) Cholesterol 208 mg/dL High Less than 200 HDL Cholesterol 46 mg/dL 40-60 36 Cholesterol/HDL Ratio 4.5 Average High 1-4.44 LDL Cholesterol 118.4 High Less Than 100 37 Comp Metabolic Panel 10/28/2013 Sodium 137 mmol/L 133-145 Potassium 4.4 mmol/L 3.5-5.0 Chloride 105 mmol/L 101-111 Co2 Carbon Dioxide 23.0 mmol/L 22-32 Anion Gap 9.0 mmol/L 2-11 Glucose 132 mg/dL High 70-100 Blood Urea Nitrogen 11 mg/dL 6-24 Creatinine 0.60 mg/dL 0.50-1.40 BUN/Creatinine Ratio 18.3 8-20 Calcium 9.2 mg/dL 8.1-9.9 Total Protein 6.4 g/dL 6.2-8.1 Albumin 4.2 g/dL 3.6-5.4 Globulin 2.2 g/dL 2-4 Albumin/Globulin Ratio 1.9 1-3 Total Bilirubin 0.8 mg/dL 0.4-1.5 Alkaline Phosphatase 78 U/L 30-110 Alt 43 U/L 14-54 Ast 26 U/L 12-42 Egfr Non- 104.6 >60 Egfr 134.5 >60 38 Hepatitis B Ammon AB 10/28/2013 Hepatitis B Surface AB Nonreactive Nonreactive Titer Hep B Surf AB Index 0.37 39 Laboratory test finding 10/28/2013 Erythrocyte Sed Rate 18 mm/Hr 0-30 Hepatitis C Antibody Nonreactive Nonreactive Vitamin D, 25 Hydroxy 10/28/2013 25-Hydroxy Vitamin D2 <4.0 ng/mL 25-Hydroxy Vitamin D3 25 ng/mL 25-Hydroxy Vitamin D Total 25 ng/mL 40 Laboratory test finding 10/28/2013 Hemoglobin A1c 6.2 % High Less than 6.0 41 TSH (Thyroid Stimulating Horm) 0.94 miu/mL 0.34-5.60 42 Laboratory test finding 08/17/2011 Glucose 116 mg/dL High 70-100 Lipid Profile (Trig/Chol/HDL) 08/17/2011 Triglyceride 242 mg/dL High 40- 200 Cholesterol 200 mg/dL Less Than 200 43 High Density Lipoprotein 42 mg/dL 40-60 44 Cholesterol/HDL Ratio 4.76 AVERAGE High 1-4.44 Low Density Lipoprotein 110 mg/dL High Less Than 100 45 Laboratory test 08/14/2011 Hemoglobin A1c 5.9 % Less Than 6.0 46 finding Surgical Pathology 04/01/2011 Surgical Pathology 47 -- <SEE NOTE> Laboratory test 01/20/2011 TSH 1.01 MIU/ML 0.34-5.60 finding Hemoglobin A1c 6.1 % High Less Than 6.0 48 Lipid Profile (Trig/Chol/HDL) 01/20/2011 Triglyceride 211 mg/dL High 40- 200 Cholesterol 235 mg/dL High Less Than 200 49 High Density Lipoprotein 49 mg/dL 40-60 50 Cholesterol/HDL Ratio 4.80 AVERAGE High 1-4.44 Low Density Lipoprotein 144 mg/dL High Less Than 100 51 Comp Metabolic Panel 01/20/2011 Sodium 139 mmol/L 135-145 Potassium 4.4 mmol/L 3.5-5.0 Chloride 106 mmol/L 101-111 Co2 (Carbon Dioxide) 25.0 mmol/L 22-32 Anion Gap 8.0 mmol/L 2-11 52 Glucose 114 mg/dL High 70-100 BUN 16 mg/dL 6-24 Creatinine 0.60 mg/dL 0.50-1.40 One Over Creatinine 1.60 BUN/Creatinine Ratio 26.7 High 8-20 Calcium 9.4 mg/dL 8.1-9.9 Total Protein 6.6 GM/DL 6.2-8.1 Albumin 4.2 GM/DL 3.6-5.4 Globulin 2.4 GM/DL 2-4 Albumin/Globulin Ratio 1.8 1-3 Bilirubin Total 1.1 mg/dL 0.4-1.5 53 Alkaline Phosphatase 71 U/L 30-110 Alt (SGPT) 56 U/L High 14-54 Ast (Sgot) 35 U/L 12-42 eGFR Non- 105.8 > 60 eGFR 136.1 > 60 54 1 Because ethnic data is not always readily available, this report includes an eGFR for both -Americans and non- Americans. The National Kidney Disease Education Program (NKDEP) does not endorse the use of the MDRD equation for patients that are not between the ages of 18 and 70, are , have extremes of body size, muscle mass, or nutritional status, or are non- or non-. According to the National Kidney Foundation, irrespective of diagnosis, the stage of the disease is based on the level of kidney function: Stage Description GFR(mL/min/1.73 m(2)) 1 Kidney damage with normal or decreased GFR 90 2 Kidney damage with mild decrease in GFR 60-89 3 Moderate decrease in GFR 30-59 4 Severe decrease in GFR 15-29 5 Kidney failure <15 (or dialysis) 2 Therapeutic target for the treatment of diabetes mellitus patients is <7% HBA1C, and in selective patients <6.0%. Please refer to [employer] diabetic care guidelines for further information. 3 Unable to calculate due to low microalbumin 4 Desirable <150 Borderline high 150-199 High 200-499 Very High >500 5 Desirable <200 Borderline high 200-239 High >239 6 Low <40 Desirable: 40-60 High: >60 7 Desirable: <100 mg/dL Near Optimal: 100-129 mg/dL Borderline High: 130-159 mg/dL High: 160-189 mg/dL Very High: >189 mg/dL 8 Therapeutic target for the treatment of diabetes Mellitus patients is <7% HBA1C, and in selective patients <6.0%.Please refer to [employer] Diabetic care guidelines for further information. 9 [id number] 10 Because ethnic data is not always readily available, this report includes an eGFR for both -Americans and non- Americans. The National Kidney Disease Education Program (NKDEP) does not endorse the use of the MDRD equation for patients that are not between the ages of 18 and 70, are , have extremes of body size, muscle mass, or nutritional status, or are non- or non-. According to the National Kidney Foundation, irrespective of diagnosis, the stage of the disease is based on the level of kidney function: Stage Description GFR(mL/min/1.73 m(2)) 1 Kidney damage with normal or decreased GFR 90 2 Kidney damage with mild decrease in GFR 60-89 3 Moderate decrease in GFR 30-59 4 Severe decrease in GFR 15-29 5 Kidney failure <15 (or dialysis) 11 PT IS FASTING 12 Desirable <150 Borderline high 150-199 High 200-499 Very High >500 13 Desirable <200 Borderline high 200-239 High >239 14 Low <40 Desirable: 40-60 High: >60 15 Desirable: <100 mg/dL Near Optimal: 100-129 mg/dL Borderline High: 130-159 mg/dL High: 160-189 mg/dL Very High: >189 mg/dL 16 Because ethnic data is not always readily available, this report includes an eGFR for both -Americans and non- Americans. The National Kidney Disease Education Program (NKDEP) does not endorse the use of the MDRD equation for patients that are not between the ages of 18 and 70, are , have extremes of body size, muscle mass, or nutritional status, or are non- or non-. According to the National Kidney Foundation, irrespective of diagnosis, the stage of the disease is based on the level of kidney function: Stage Description GFR(mL/min/1.73 m(2)) 1 Kidney damage with normal or decreased GFR 90 2 Kidney damage with mild decrease in GFR 60-89 3 Moderate decrease in GFR 30-59 4 Severe decrease in GFR 15-29 5 Kidney failure <15 (or dialysis) 17 Therapeutic target for the treatment of diabetes Mellitus patients is <7% HBA1C, and in selective patients <6.0%.Please refer to [employer] Diabetic care guidelines for further information. 18 Unable to calculate due to low microalbumin 19 PT IS FASTING 20 Therapeutic target for the treatment of diabetes Mellitus patients is <7% HBA1C, and in selective patients <6.0%.Please refer to [employer] Diabetic care guidelines for further information. 21 FASTING 12 HOUR 22 Because ethnic data is not always readily available, this report includes an eGFR for both -Americans and non- Americans. The National Kidney Disease Education Program (NKDEP) does not endorse the use of the MDRD equation for patients that are not between the ages of 18 and 70, are , have extremes of body size, muscle mass, or nutritional status, or are non- or non-. According to the National Kidney Foundation, irrespective of diagnosis, the stage of the disease is based on the level of kidney function: Stage Description GFR(mL/min/1.73 m(2)) 1 Kidney damage with normal or decreased GFR 90 2 Kidney damage with mild decrease in GFR 60-89 3 Moderate decrease in GFR 30-59 4 Severe decrease in GFR 15-29 5 Kidney failure <15 (or dialysis) 23 Desirable <150 Borderline high 150-199 High 200-499 Very High >500 24 Desirable <200 Borderline high 200-239 High >239 25 Low <40 Desirable: 40-60 High: >60 26 Desirable: <100 mg/dL Near Optimal: 100-129 mg/dL Borderline High: 130-159 mg/dL High: 160-189 mg/dL Very High: >189 mg/dL 27 DO IN ABOUT 6 MONTHSFASTING FASTING FASTING FASTING 28 Therapeutic target for the treatment of diabetes Mellitus patients is <7% HBA1C, and in selective patients <6.0%.Please refer to [employer] Diabetic care guidelines for further information. 29 Desirable <150 Borderline high 150-199 High 200-499 Very High >500 30 Desirable <200 Borderline high 200-239 High >239 31 Low <40 Desirable: 40-60 High: >60 32 Desirable <100 Near Optimal 100-129 Borderline high 130-159 High 160-189 Very High >189 33 FASTING 34 Therapeutic target for the treatment of diabetes Mellitus patients is <7% HBA1C, and in selective patients <6.0%.Please refer to [employer] Diabetic care guidelines for further information. 35 RUN DATE: 11/09/13 [facility] LAB LIVE PAGE 1 RUN TIME: [address] [place] [address] Specimen Inquiry Name: ANA TAVAREZ : [address]: Constantine Diaz MD Acct: [id number] Unit: [id number] AGE: 53 Location: THYROID Re11/09/13 SEX: F Status: REG REF SPEC: [id number] HARRISON: 11/09/13-[address]: Duane Ardon MD REQ: [id number] RECD: 11/09/13 STATUS: ALVA LAIRD DR: Constantine Faye MD _ ORDERED: FN ASP DEEP, FNA IMMEDIATE S FINAL DIAGNOSIS Thyroid, right, Ultrasound guided, fine needle aspiration: Benign thyroid nodule- colloid/hyperplastic type COMMENTS: The specimen demonstrates abundant watery colloid, an abundant amount of benign appearing follicular epithelium arranged in uniform sheets, medium sized follicles and only occasional small groups. No features of papillary carcinoma are seen. In this clinical setting the risk of malignancy is less than 3%. Clinical management of this thyroid nodule should be based on clinical and radiographic features as well as the above. THYROID RIGHT - US GUIDED FINE NEDLE ASPIRATION CONTINUED ON NEXT PAGE * ML=Testing performed at Main Lab DEPARTMENT OF PATHOLOGY, [facility] [place] [address] Nikhil Allan M.D. Director [facility] Permit #[id number] RUN DATE: 11/09/13 [facility] LAB LIVE PAGE 2 RUN TIME: 5454 [facility] [employer] [place], [place] [address] Specimen Inquiry Patient: ANA TAVAREZ [id number] (Continued) CLINICAL HISTORY (Continued) CLINICAL HISTORY Right thyroid nodule 5cm IMMEDIATE INTERPRETATION Pass 1 and 2- adequate GROSS DESCRIPTION 4 - alcohol fixed slide(s) 2 - passes Needle rinse in CytoLyt solution for thin layer non-claim clerk test. Signed (signature on file) Deepti Owens MD 03/17 1154 END OF REPORT * ML=Testing performed at Main Lab DEPARTMENT OF PATHOLOGY, [address] [place] [address] Nikhil Allan M.D. Director [facility] Permit #[id number] HDL Interpretation: Undesirable: High Risk: Less than 40 mg/dL Desirable: Low Risk: Greater than 60 mg/dL 37 LDL Interpretation: Low Risk Optimal Level: LDL Less than 100 mg/dL Near or Above Optimal: LDL 100-129 mg/dL Borderline High Risk: LDL 130-159 mg/dL High Risk: LDL 160-189 mg/dL Very High Risk: LDL Greater than 189 mg/dL 38 Because ethnic data is not always readily available, this report includes an eGFR for both -Americans and non- Americans. The National Kidney Disease Education Program (NKDEP) does not endorse the use of the MDRD equation for patients that are not between the ages of 18 and 70, are , have extremes of body size, muscle mass, or nutritional status, or are non- or non-. According to the National Kidney Foundation, irrespective of diagnosis, the stage of the disease is based on the level of kidney function: Stage Description GFR(mL/min/1.73 m(2)) 1 Kidney damage with normal or decreased GFR 90 2 Kidney damage with mild decrease in GFR 60-89 3 Moderate decrease in GFR 30-59 4 Severe decrease in GFR 15-29 5 Kidney failure <15 (or dialysis) 39 The World Health Organization (WHO) Hepatitis B Immunoglobulin 1st International Reference Preparation (1976): The accepted criteria for immunity to HBV is anti-HBs activity greater than or equal to 10 mIU/mL. An Index Value of 1.00 is equivalent to 10 mIU/mL. Samples with an Index Value of 1.00 or greater are considered reactive (protective) in accordance with the CDC guidelines. 40 -- REFERENCE VALUE -- 25-HYDROXY D TOTAL (D2+D3) Optimum levels in the healthy population are 20-50, patients with bone disease may benefit from higher levels within this range. Test Performed by: [facility] [address] [address] Jewel [place] Cornerer: Chris Das III, M.D. 41 Therapeutic target for the treatment of diabetes Mellitus patients is <7% HBA1C, and in selective patients <6.0%.Please refer to [employer] Diabetic care guidelines for further information. 42 PT IS FASTING 43 CHOLESTEROL INTERPRETATION: Desirable: Less than 200 MG/DL Borderline-High Risk: 200-239 MG/DL High-Risk: 240 MG/DL and over 44 HDL INTERPRETATION: Undesirable: High Risk: Less than 40 MG/DL Desirable: Low Risk: Greater than 60 MG/DL 45 LDL INTERPRETATION: Low Risk Optimal Level: LDL Less than 100 MG/DL Near or Above Optimal: LDL 100-129 MG/DL Borderline High Risk: LDL 130-159 MG/DL High Risk: LDL 160-189 MG/DL Very High Risk: LDL Greater than 189 MG/DL 46 THERAPEUTIC TARGET FOR THE TREATMENT OF DIABETES MELLITUS PATIENTS IS <7% HBA1C, AND IN SELECTIVE PATIENTS <6.0%. PLEASE REFER TO [employer]OCIATION DIABETIC CARE GUIDELINES FOR FURTHER INFORMATION. 47 ---- RUN DATE: 04/02/11 [facility] NMI LIVE PAGE 1 RUN TIME: 1757 Specimen Inquiry RUN USER: INTERFACE -- Name: ANA TAVAREZ Status: REG REF Re04/01/11 Age/Sex: 51/F Unit#: [id number] Location: [facility]. : 60 -- Specimen: [id number] SOUT Spec Date: 04/01/[address]: Jaime nichols MD Spec Type: SURGICAL P Received: 04/01/11-0800 Copies to: Laura muir MD SPECIMEN RIGHT COLON BIOPSIES HISTORY POST-OP DIAGNOSIS: Colonoscopy to terminal ileum. Normal. CLINICAL INFORMATION: Diarrhea. Screening. GROSS DESCRIPTION The specimen is received in formalin labelled Ana Tavarez, Right Colon Biopsies, and consists of three fragments of yellow tissue each measuring 0.5 x 0.2 x 0.2 cm. Submitted entirely, one cassette. DIAGNOSIS Colon, right, biopsies: A. Large intestinal mucosa with no significant pathologic abnormality. B. No specific features of microscopic/lymphocytic colitis, collagenous colitis or other chronic inflammatory bowel processed identified. Signed Electronically by: NIKHIL ALLAN MD 04/02/11 1424 -- -- DEPARTMENT OF PATHOLOGY, [address] [place] [address] [facility] Permit #[id number] Nikhil Allan M.D. Director Jamila Rodriguez M.D. Winter Sports Manager Dir soy -- 48 THERAPEUTIC TARGET FOR THE TREATMENT OF DIABETES MELLITUS PATIENTS IS <7% HBA1C, AND IN SELECTIVE PATIENTS <6.0%. PLEASE REFER TO [employer] ASSOCIATION DIABETIC CARE GUIDELINES FOR FURTHER INFORMATION. 49 CHOLESTEROL INTERPRETATION: Desirable: Less than 200 MG/DL Borderline-High Risk: 200-239 MG/DL High-Risk: 240 MG/DL and over 50 HDL INTERPRETATION: Undesirable: High Risk: Less than 40 MG/DL Desirable: Low Risk: Greater than 60 MG/DL 51 LDL INTERPRETATION: Low Risk Optimal Level: LDL Less than 100 MG/DL Near or Above Optimal: LDL 100-129 MG/DL Borderline High Risk: LDL 130-159 MG/DL High Risk: LDL 160-189 MG/DL Very High Risk: LDL Greater than 189 MG/DL 52 Anion gap measurement may be of limited value in the presence of any alkalosis, especially in a combined acid base disorder. . 53 A metabolite of Naproxen, O-desmethylnaproxen, has been shown to interfere with the Vivian- method for measuring total bilirubin. Samples from patients who have taken Naproxen have shown spurious elevation in total bilirubin levels. 54 Because ethnic data is not always readily available, this report includes an eGFR for both -Americans and non- Americans. The National Kidney Disease Education Program (NKDEP) does not endorse the use of the MDRD equation for patients that are not between the ages of 18 and 70, are , have extremes of body size, muscle mass, or nutritional status, or are non- or non-. According to the National Kidney Foundation, irrespective of diagnosis, the stage of the disease is based on the level of kidney function: Stage Description GFR(mL/min/1.73 m(2)) 1 Kidney damage with normal or decreased GFR 90 2 Kidney damage with mild decrease in GFR 60-89 3 Moderate decrease in GFR 30-59 4 Severe decrease in GFR 15-29 5 Kidney failure <15 (or dialysis) Procedures Date CPT Code Description Status Comment 03/30/2017 Diabetic Retinal Eye Exam Completed 02/12/2017 10820 Thyroid Lobectomy Partial Completed Unilateral W/Contralat Subtot Lobectomy 02/12/2017 03379 Thyroid Lobectomy Partial Completed Unilateral W/Contralat Subtot Lobectomy 02/02/2017 74271 EKG, Interpretation Only Completed 10/31/2015 Diabetic Retinal Eye Exam Completed 10/24/2015 Mammogram Completed 05/23/2014 Mammogram Completed 03/31/2012 Bone Mineral Density Test Completed 03/31/2012 Mammogram Completed 04/02/2011 Colonoscopy Completed no polyps, normal path, f/u 10 yr 04/01/2011 Colonoscopy Completed 02/13/2011 Mammogram Completed 12/23/2010 40895 Noninvasive Ear Or Pulse Completed Oximetry For Oxygen Saturation 08/08/2009 Mammogram Completed 06/07/2009 58445 Remove Impacted Cerumen Completed 04/19/2009 73763 EKG Tracing & Completed Interpretation 05/14/2008 Bone Mineral Density Test Completed Encounters Type Date Location Provider CPT E/M Dx Office Visit 04/13/2017 [facility] Laura Faye 98794 E11.9 8:40a - Tisha Malhotra E89.0 Z71.9 R21 Office Visit 03/29/2017 2:40p [facility] [place] [address] H00.012 - [place] Office Visit 02/09/2017 2:40p [facility] Irma Chow, N.PBinta 87585 Z01.818 - [place] E04.9 E11.9 J45.40 Office Visit 01/12/2017 2:30p [facility] [place] [address] E04.9 Of [facility] Office Visit 10/13/2016 3:40p [facility] Internal Medicine Laura Faye 23453 Z00.00 - Tisha Malhotra E11.9 E04.9 Z12.31 Z23 Office Visit 06/22/2016 9:10a [facility] Internal JamesPercy Bhardwaj, 74[address] J45.41 Medicine - [address] [place],FACP E04.8 E11.9 Office Visit 05/05/2016 10:40a [facility] Internal Medicine Laura Faye 55075 E11.9 - Tisha Malhotra J45.909 M79.672 E04.9 Office Visit 02/13/2016 1:20p [facility] Internal Medicine Laura Faye 11642 J01.90 - Tisha Malhotra J01.00 Office Visit 01/28/2016 1:00p [facility] Internal Medicine Laura Faye 10711 E11.9 - Tisha Malhotra R21 Office Visit 10/09/2015 10:20a [facility] Internal Medicine Laura Faye 17822 Z00.00 - Tisha Malhotra E11.9 E07.89 Z12.31 Office Visit 09/17/2015 2:00p [facility] Medicine Lee Ann Rosenberg M.D. 67728 F43.0 - Tisha F43.0 S23.3xxA S23.3xxA Office Visit 05/30/2015 11:20a [facility] Internal Medicine Laura Faye 95457 250.00 - Tisha Malhotra 569.3 V62.82 Office Visit 03/01/2015 4:00p [facility] Internal Medicine Laura Faye 86857 250.00 - Tisha Malhotra Office Visit 11/27/2014 3:40p [facility] Internal Medicine Laura Faye 89332 250.00 - Tisha Malhotra 238.2 709.9 Office Visit 10/25/2014 1:00p [facility] Internal Medicine Thanh Anton, LANA 36548 461.8 - [place] Office Visit 10/02/2014 9:00a [facility] Internal Medicine Laura Faye 05738 465.9 - [place] M.D. 246.8 Office Visit 07/11/2014 3:00p [facility] Internal Medicine Thanh Anton, LANA 59661 466.0 - [place] Office Visit 05/21/2014 10:20a [facility] Laura Faye 14699 V70.0 - [place] M.D. 246.8 790.21 719.47 V76.10 Office Visit 12/04/2013 2:40p [facility] Irma Chow, N.P. 98858 465.9 - [place] Office Visit 12/01/2013 4:20p [facility] Laura Faye 58093 246.8 - [place] M.DBinta V65.49 790.21 726.32 Office Visit 05/18/2013 2:20p [facility] Laura Faye 07718 V70.0 - [place] M.DBinta V72.31 V76.10 246.8 733.90 790.21 842.09 V01.89 Office Visit 03/22/2013 4:00p [facility] Medicine Irma Chow, N.P. 57692 380.4 - [place] 719.47 787.91 Office Visit 09/09/2012 11:30a [facility] Alexa Echeverria N.P. 56572 246.8 - [place] 465.9 Office Visit 02/12/2012 3:20p [facility] Laura Faye 01755 V70.0 - [place] M.DBinta V72.31 V76.10 733.90 272.2 790.21 246.8 Office Visit 08/21/2011 3:20p DO Not Use Laura Fyae, 74344 729.5 [employer] M.D. 789.00 246.8 Office Visit 04/15/2011 10:40a DO Not Use Catina Barakat M.D., 51721 708.9 [facility] FACP Office Visit 01/27/2011 2:45p DO Not Use Laura Cotton, 83952 V70.0 [employer] M.D. 787.91 241.1 729.5 790.21 Office Visit 12/23/2010 3:15p DO Not Use Laura Cotton, 14275 493.00 [employer] M.D. Office Visit 11/13/2010 1:45p DO Not Use Laura Cotton, 76918 493.00 [employer] M.D. Office Visit 11/05/2010 3:15p DO Not Use Irma Varn, 94145 466.0 [employer] N.P. 461.9 354.0 Office Visit 10/22/2010 3:00p DO Not Use [employer] Irma Varn, 00453 466.0 N.P. 354.0 Office Visit 07/04/2010 4:15p DO Not Use Laura Cotton, 40310 493.90 [employer] M.D. 388.71 733.99 241.0 V04.81 Office Visit 10/29/2009 4:00p DO Not Use Nakia Wilkinson, 79566 782.62 [employer] M.D. 272.4 493.90 Office Visit 06/13/2009 4:30p DO Not Use Nakia Wilkinson, 69141 786.2 [employer] M.D. 493.90 V04.81 V03.82 Office Visit 06/03/2009 10:30a DO Not Use [employer] Catina Barakat, 69356 380.10 M.D., FACP 380.4 Office Visit 04/19/2009 11:00a DO Not Use Nakia Wilkinson, 24000 V72.31 [employer] M.D. 845.00 782.1 493.90 272.4 Office Visit 03/07/2009 4:00p DO Not Use Nakia Wilkinson, 60309 493.90 [employer] M.D. 311 V07.8 Office Visit 01/25/2009 10:00a DO Not Use Nakia Wilkinson, 46633 529.0 [employer] M.D. 311 Office Visit 01/09/2009 10:30a DO Not Use Irma Varn, 89497 110.5 [employer] N.P. Office Visit 11/09/2008 3:30p DO Not Use Irma Varn, 61609 466.0 [employer] N.P. Office Visit 10/22/2008 10:15a DO Not Use RadNakia aswyer, 61603 372.30 [employer] [facility] M.D. 465.9 Office Visit 09/03/2008 9:30a DO Not Use RadNakia sawyer, 70355 493.92 [employer] M.D. 780.4 Office Visit 06/08/2008 3:30p DO Not Use Irma Varn, 60217 959.5 [employer] N.P. Office Visit 05/28/2008 3:45p DO Not Use Irma Varn, 16896 493.90 [employer] N.P. 272.4 Office Visit 05/07/2008 2:00p DO Not Use RadNakia sawyer, 21512 786.2 [employer] [facility] M.D. 493.90 Office Visit 04/16/2008 12:15p DO Not Use Catina Barakat M.D., 53133 465.9 [employer] FACP Office Visit 03/26/2008 3:00p DO Not Use Irma Varn, 33597 V72.31 [employer] N.P. Office Visit 02/06/2008 3:45p DO Not Use Irma Varn, 71941 493.90 [employer] N.P. 784.2 112.0 Office Visit 01/06/2008 3:45p DO Not Use Irma Varn, 66004 493.90 [employer] N.P. 477.9 373.11 Office Visit 09/16/2007 4:00p DO Not Use Irma Varn, 67662 493.90 [employer] N.P. Office Visit 08/23/2007 1:30p DO Not Use Irma Varn, 22341 461.9 [employer] N.P. 466.0 311 Office Visit 03/15/2007 3:15p DO Not Use RadNakia sawyer, 53826 493.90 Jone Malhotra 112.1 241.0 272.4 V70.0 V06.1 Office Visit 09/14/2006 3:45p DO Not Use RadNakia sawyer, 26969 493.90 Jone Malhotra 466.0 Office Visit 04/16/2006 11:30a DO Not Use Nakia Wilkinson, 88412 786.2 Jone Malhotra 493.90 272.0 Plan of Care 10/19/2017 - Laura Faye M.D.Z00.00 Encntr for general adult medical exam w/o abnormal findingsComments:VACCINES:Flu shot every year in the fall.Tetanus: last one done in 2016, booster every 10 years, earlier if major injuryPneumonia vaccine: Pneumovax done in 2008. Booster at age 65Shingles vaccine: there are now 2 shingles vaccines - Zostavax - 50% effective, recommended at age 60 - Shingrix - 90% effective, final recommendations pending, will likely be recommended for people age 50 and upSCREENING:Colonoscopy: last one done in 2010. 10 year follow up recommendedMammogram: last done in 2015Pap smear: not needed after hysterectomy if prior paps were normalSkin screening: with Dr. Rico density (DEXA): done in 2011. Bone density was normal, borderline in the spineCholesterol: due in AprilFollow up:March - for diabetes, 1 year for PEE11.9 Type 2 diabetes mellitus without qhrvjtmarepdoL57.511 Pain in right shoulderNew Therapy:Physical UdttskqY98.561 Pain in right kneeNew Therapy: Physical VuulajxJ15.3 Tinea pedisComments:Continue over the counter Cortisone cream, also Tinactin, kxeptvmhkhhtA01.31 Encntr screen mammogram for malignant neoplasm of breastNew Xrays:Mammogram Screening BilJ30.9 Allergic rhinitis, unspecifiedReferral:Jackson Garcia MD, Allergy & QnjoziakukP80.571 Pain in right ankle and joints of right footNew Therapy:Physical TherapyComments :Call me if you want to see permit specialist
[2017-10-25 13:31] VITALS: BP 125/71
--- NOTE | 2017-10-25 16:26 | ED ---
Ene Sarmiento Nilda, scribed for Faye Alicea MD on 10/25/17 at 1040 . 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 Patient reports chest congestion, productive cough ( yellow) and chest tightness for the past week. Pt states that today is the first time her CP hurt in a different way. Pt notes she visited school nurse who stated pt looked flushed and should go to the ED. The patient rates the pain 4/10 in severity. Symptoms aggravated and alleviated by nothing. Patient denies fever, hemoptysis, wheezing, edema, and calf pain. Medications include Flovent, Metformin, Nasonex, and levocetirizine. NKDA. PSHx thyroid surgery ( January 2017) and hysterectomy. No PMHx blood clots. PMHx includes asthma. - History of Current Complaint Chief Complaint: EDChestWallPain Time Seen by Provider: 10/25/17 10:21 Hx Obtained From: Patient Onset/Duration: Started Minutes Ago, Atraumatic, Still Present Timing: Constant Initial Severity: Moderate Current Severity: Mild Pain Intensity: 4 Pain Scale Used: 0-10 Numeric Chest Pain Location: Diffuse Chest Pain Radiates: No Character: Heaviness Aggravating Factor(s): Nothing Alleviating Factor(s): Nothing Associated Signs and Symptoms: Positive: Productive Cough, URI, Other: - chest congestion for the past week, as well as productive cough (yellow) and chest tightness; denies fever, hemoptysis, wheezing, edema, and calf pain.. Negative : Shortness of Breath, Fever, Hemoptysis, Bloody Sputum, Wheezing, Edema - Additional Pertinent History Primary Care Physician: [id number] - Allergy/Home Medications Allergies/Adverse Reactions: Allergies Allergy/AdvReac Type Severity Reaction Status Date / Time Lactose Intolerance (GI) Allergy Mild GI Upset Verified 02/12/17 07:38 SEASONAL/HAY FEVER Allergy Congestion Uncoded 02/12/17 07:38 PMH/Surg Hx/FS Hx/Imm Hx Endocrine/Hematology History: Reports: Hx Diabetes - Type II, controlled with medication and diet Denies: Hx Anemia Respiratory History: Reports: Hx Asthma - controlled with medication, Hx Seasonal Allergies GI History: Denies: Hx Jaundice Sensory History: Denies: Hx Contacts or Glasses, Hx Hearing Aid Opthamlomology History: Denies: Hx Contacts or Glasses - Cancer History Hx Chemotherapy: No Hx Radiation Therapy: No - Surgical History Surgery Procedure, Year, and Place: [facility] BS&O; Hx Anesthesia Reactions: No Infectious Disease History: No Infectious Disease History: Denies: Traveled Outside the [place] in Last 30 Days - Family History Known Family History: Positive: Other - Alzheimer's, Parkinson's (mother) Negative: Cardiac Disease - Social History 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 Negative: Edema Positive: Other - "flushed" Neurological: Negative Psychological: Normal All Other Systems Reviewed And Are Negative: Yes Physical Exam - Summary Physical Exam Summary: Appearance: Ill-appearing, mild pain distress, Overweight Skin: Warm, color reflects adequate perfusion, face is no longer flushed Head: Normal Head/Face inspection Eyes: Conjunctiva clear ENT: Pharynx red, Tonsils small, no exudate, TMs clear Neck: Supple, no nodes, no JVD. Respiratory: Lungs clear, Normal breath sounds, no respiratory distress Cardio: RRR, No murmur, pulses normal, brisk capillary refill Abdomen: soft, nontender Bowel sounds: present Musculoskeletal: Strength Intact/ ROM intact. No calf tenderness. No edema. Neuro: Alert, muscle tone normal, facial symmetry, speech normal, sensory/motor intact Psychological: Normal Triage Information Reviewed: Yes Vital Signs On Initial Exam: Initial Vitals Temp Pulse Resp BP Pulse Ox 97.8 F 74 18 138/63 97 10/25/17 10:08 10/25/17 10:08 10/25/17 10:08 10/25/17 10:08 10/25/17 10:08 Vital Signs Reviewed: Yes Diagnostics - Vital Signs Vital Signs Temp Pulse Resp BP Pulse Ox 10/25/17 10:08 97.8 F 74 18 138/63 97 - Laboratory Result Diagrams: 10/25/17 10:56 10/25/17 10:56 Lab Statement: Any lab studies that have been ordered have been reviewed, and results considered in the medical decision making process. - Radiology CXR Radiology Interpretation Completed By: Radiologist - CXR, per radiologist, reveals no evidence for active cardiopulmonary disease. Dr. Alicea has reviewed this radiology report. - EKG 1013 Cardiac Rate: NL EKG Rhythm: Sinus Rhythm - [address] Segment: Normal Ectopy: None EKG Interpretation: nml AVIVCT, nl QTc; Broxton -8 EKG Comparison: No Significant Change - compared with 02/02/17 Re-Evaluation - Re-Evaluation First Eval Re-Evaluation Time: 12:57 Change: Improved Comment: CP is gone. Pt would like to try Tessalon Perle for the cough. Awaiting strep and flu testing. Second Eval Re-Evaluation Time: 13:36 Change: Improved Comment: Reviewed dispo plan with pt. Pt understands D/C instructions. Chest Pain Course/Dx - Course Assessment/Plan: This pt is a 57 y/o F with a CC of suddent onset chest heaviness since this morning while at work. Pt has had chest congestion and productive cough for the past week. PMHx asthma. Pending labs, EKG, and CXR. Labs reveal negative flu and strep. Troponin and d dimer both negative. An EKG reveals NSR, 70 bpm, nl ST segment, no ectopy, nl AVIVCT, nl QTc, Broxton -8. CXR, per radiologist, reveals no evidence for active cardiopulmonary disease. Dr. Alicea has reviewed this radiology report. Pt medication reviewed this visit. Allergies. Noted. Pt is stable and will be D/C with Dx of CP and URI and a prescription for Tessalon Perle. Pt understands and is agreeable with plan. - Diagnoses Provider Diagnoses: Chest pain, URI (upper respiratory infection) Discharge - Discharge Plan Condition: Stable Disposition: HOME Prescriptions: Benzonatate CAP* [Tessalon 100 MG CAP*] 100 mg PO TID #20 cap Patient Education Materials: Chest Pain (ED), Upper Respiratory Infection (ED) Forms: *Work Release Referrals: Laura Faye MD [Primary Care Provider] - Additional Instructions: Your blood work did not show any serious cause of your chest discomfort and your flushing and red face. The EKG did not show heart abnormalities. The CXR did not show pneumonia. The rapid strep test was negative. The flu swab was also negative. You may take Mucinex (guaifenesin) and tessalon perles for the cough. Return to the ER if you have new or worsening symptoms. The documentation as recorded by the Ene garcia Nilda accurately reflects the service I personally performed and the decisions made by me, Faye Alicea MD.
== END 2017-10-25 13:43 | disposition home or self-care (01) ==
LOC: ED 10:02
DX: R07.89 Other chest pain (principal); J06.9 Acute upper respiratory infection, unspecified; E11.9 Type 2 diabetes mellitus without complications; Z79.84 Long term (current) use of oral hypoglycemic drugs; J45.909 Unspecified asthma, uncomplicated; E66.3 Overweight; Z90.710 Acquired absence of both cervix and uterus
CPT/HCPCS: 36415; 71046; 80053; 82550; 82553; 83605; 83735; 83880; 84436; 84443; 84484; 85025; 85379; 85610; 85730; 87502; 87651; 93005; 99283